=== PATIENT | male | born 1995 | race Caucasian/White ===

== ENCOUNTER 2021-04-12 06:29 | Emergency (ER) | payer BC, OTHER ==
[~2021-04-12 06:29] MED LIST: BENTYL 20MG TAB20 MG PO; ZOFRAN4 MG PO
== END 2021-04-12 08:24 | disposition home or self-care (01) ==
LOC: ER1 06:29
DX: U07.1 COVID-19 (principal); Z90.49 Acquired absence of other specified parts of digestive tract
CPT/HCPCS: 0240U; 99283

== ENCOUNTER 2021-04-18 15:42 | Emergency (ER) | payer BC, OTHER ==
[2021-04-18 19:28] LABS: HEMOGLOBIN 15.4 gm/dl (14.0-17.5); RED BLOOD COUNT 5.03 M/UL (4.20-5.50)
[2021-04-18 19:47] LABS: BUN/CREATININE RATIO 6 (0-10)
[2021-04-18] MEDS ORDERED: ZOFRAN ODT 4 MG4 MG SL (20:38)
[2021-04-18] MEDS ORDERED: PROAIR HFA8.5 GM INH (20:38)
== END 2021-04-18 21:02 | disposition home or self-care (01) ==
LOC: ER1 15:42
PROVIDERS: Emergency Medicine
DX: U07.1 COVID-19 (principal); Z88.2 Allergy status to sulfonamides
CPT/HCPCS: 71045; 80053; 85025; 96374; 96375; 99285; J1100; J2405